=== PATIENT | male | born 1960 | race Caucasian/White ===

== ENCOUNTER 2017-09-06 13:57 | Emergency (ER) | payer BC ==
[2017-09-06 14:21] VITALS: BP 129/85
--- NOTE | 2017-09-06 14:46 | UC ---
Respiratory Complaint HPI - HPI Summary HPI Summary: 57 year old male presents with complains of cough and chest congestion. - History of Current Complaint Chief Complaint: UCRespiratory Stated Complaint: COUGH UPPER RESPIRATORY Time Seen by Provider: 09/06/17 14:46 Hx Obtained From: Patient Timing: Constant Severity Initially: Moderate Severity Currently: Moderate - Allergies/Home Medications Allergies/Adverse Reactions: Allergies Allergy/AdvReac Type Severity Reaction Status Date / Time Nortriptyline Allergy Hives Verified 09/06/17 14:21 Home Medications: Home Medications Albuterol HFA INHALER* [Ventolin HFA Inhaler*] 2 puff INH Q6H PRN 09/06/17 [ History Confirmed 09/06/17] Baclofen TAB* [Lioresal TAB*] 20 mg PO BID 09/06/17 [History Confirmed 09/06/17 ] Budesonide/Formote 160/4.5(NF) [Symbicort 160/4.5 (NF)] 2 puff INH BID 09/06/17 [History Confirmed 09/06/17] Metoprolol Tartrate TAB* [Lopressor TAB*] 25 mg PO DAILY 09/06/17 [History Confirmed 09/06/17] Zolpidem TAB* [Ambien TAB*] 10 mg PO BEDTIME PRN 09/06/17 [History Confirmed ] oxyCODONE TAB* [Roxycodone TAB 5 mg*] 10 mg PO BID 09/06/17 [History Confirmed 09/06/17] PMH/Surg Hx/FS Hx/Imm Hx Previously Healthy: Yes - Surgical History Surgical History: Yes Surgery Procedure, Year, and Place: hemorrhoids, IH repairs x 3, left knee meniscus; cervical with 3 titanium screws, one plate [address] Jensen - Social History Alcohol Use: Occasionally Substance Use Type: None Smoking Status (MU): Never Smoked Tobacco Review of Systems Constitutional: Negative Skin: Negative Eyes: Negative ENT: Sinus Congestion, Sinus Pain/Tenderness Respiratory: Cough Cardiovascular: Negative Gastrointestinal: Negative Genitourinary: Negative Motor: Negative Neurovascular: Negative Musculoskeletal: Negative Neurological: Negative Psychological: Negative All Other Systems Reviewed And Are Negative: Yes Physical Exam Triage Information Reviewed: Yes Vital Signs: Initial Vital Signs Temp 36.9 C 09/06/17 14:16 Pulse 70 09/06/17 14:16 Resp 21 09/06/17 14:16 BP 129/85 09/06/17 14:16 Pulse Ox 98 09/06/17 14:16 Vital Signs Reviewed: Yes Eye Exam: Normal ENT: Positive: Nasal congestion, Nasal drainage, Sinus tenderness Dental Exam: Normal Neck exam: Normal Neck: Positive: 1 Respiratory: Positive: Rhonchi, Wheezing Cardiovascular Exam: Normal Abdominal Exam: Normal Musculoskeletal Exam: Normal Neurological Exam: Normal Psychological Exam: Normal Skin Exam: Normal UC Diagnostic Evaluation - Laboratory O2 Sat by Pulse Oximetry: 98 Respiratory Course/Dx - Differential Dx/Diagnosis Provider Diagnoses: cough. chest congestion Discharge - Discharge Plan Condition: Stable Disposition: HOME Prescriptions: Albuterol HFA INHALER* [Ventolin HFA Inhaler*] 1 puff INH Q6H PRN #1 mdi PRN Reason: Wheezing Amoxicillin/Clavulanate TAB* [Augmentin TAB 875*] 875 mg PO BID #20 tab Guaifenesin-Codeine [Cheratussin AC] 1 teasp PO Q8H PRN #120 ml MDD 15 ml PRN Reason: Cough Methylprednisolone [Medrol Dosepak 4 MG*] 4 mg PO .SEE PAULO INSTRUCTION #21 tab Patient Education Materials: Acute Bronchitis (ED), Acute Cough (ED) Referrals: No Primary Care Phys,NOPCP [Primary Care Provider] -
== END 2017-09-06 15:07 | disposition home or self-care (01) ==
LOC: UCCORT 13:57
DX: R05 Cough (principal); R09.89 Other specified symptoms and signs involving the circulatory and respiratory systems
CPT/HCPCS: 99212; G0463

== ENCOUNTER 2019-07-13 14:22 | Emergency (ER) | payer BC | END 2019-07-13 15:23 | disposition left against medical advice (07) | LOC: UCCORT 14:22 | DX: R05 Cough (principal); J34.89 Other specified disorders of nose and nasal sinuses; Z53.21 Procedure and treatment not carried out due to patient leaving prior to being seen by health care provider ==

== ENCOUNTER 2021-11-01 07:30 | Observation (INO) ==
[~2021-11-01 07:30] MED LIST: Buffered Lidocaine 1% SYRIN 1 ml INTRADERM ONE; Lactated Ringers 1000 ml BAG 1,000 ML IV SCH
[2021-11-01] MEDS ORDERED: Midazolam 2 mg/2 ml VIAL 1 mg/ml 2 ml VIAL (2 mg) ONE (07:44)
[2021-11-01] MEDS ORDERED: fentaNYL 100 mcg/2 ml 50 MCG/ML VIAL ONE (07:44)
[2021-11-01] MEDS ORDERED: Phenylephrine IV 10 MG/ML 1 ml VIAL ONE (07:45)
[2021-11-01] MEDS ORDERED: Lidocaine 2% PF 5 ML VIAL ONE (07:45)
[2021-11-01] MEDS ORDERED: Propofol 10 mg/ml 100 ML BTL 100 ML ONE (07:56)
[2021-11-01] MEDS ORDERED: ceFAZolin 1 GM ADVAN 1 GM ADDV.VIAL IVPB ONE (08:22)
[2021-11-01] MEDS ORDERED: Buffered Lidocaine 1% SYRIN 1 ml INTRADERM ONE (08:23)
[2021-11-01] MEDS ORDERED: ceFAZolin 2 GM PREMIX 2 GM/50 ML BAG ONE (08:23)
[2021-11-01] MEDS ORDERED: Bupivacaine 0.5% W/EPI SDV 10 ML VIAL INJ ONE (08:52)
[2021-11-01] MEDS ORDERED: Vancomycin 1,000 MG VIAL ONE (08:52)
[2021-11-01] MEDS ORDERED: Lidocaine 1% MPF 5 ML VIAL ONE (09:07)
[2021-11-01] MEDS ORDERED: ROPIVACAINE 5 MG/ML 30 ML BTL (0.5%) ONE (09:07)
[2021-11-01] MEDS ORDERED: Propofol 10 MG/ML 20 ML BTL ONE ×2 (09:30→09:48)
[2021-11-01] MEDS ORDERED: fentaNYL 250 mcg/5 ml 50 MCG/ML 5 ml VIAL (250 MCG) ONE (09:33)
[2021-11-01] MEDS ORDERED: Ketamine HCL 50 mg/ml 10 ml VIAL (500 MG) ONE (09:52)
[2021-11-01] MEDS ORDERED: EPHEDrine (Pressors) 50 MG/ML VIAL ONE (10:07)
[2021-11-01] MEDS ORDERED: fentaNYL 100 mcg/2 ml 50 MCG/ML VIAL IV PRN (10:14)
[2021-11-01] MEDS ORDERED: Acetaminophen IV 1 GM/100ML 100 ML IV PRN (10:14)
[2021-11-01] MEDS ORDERED: Naloxone 0.4 mg VIAL 0.4 mg/ml 1 ml VIAL IV PRN (10:14)
[2021-11-01] MEDS ORDERED: DiMENhydriNATE IV 50 mg/ml 1 ml VIAL IV PUSH PRN (10:14)
[2021-11-01] MEDS ORDERED: Ondansetron 4 mg VIAL 2 MG/ML 2 ml VIAL IV PRN ×2 (10:14→12:45)
[2021-11-01] MEDS ORDERED: HYDROmorphone 1 MG/1 ML SYRINGE IV PRN (10:14)
[2021-11-01] MEDS ORDERED: diPHENhydraMINE IV 50 MG/ML 1 ml VIAL (BENADRYL) IV PRN ×2 (10:14→12:45)
[2021-11-01] MEDS ORDERED: Prochlorperazine 5 mg/ml 2 ml VIAL (10 mg) IV PRN (10:14)
[2021-11-01] MEDS ORDERED: HYDROmorphone 0.5 MG/0.5 ML SYRINGE ONE ×2 (10:51)
[2021-11-01 11:22] LABS: Urine Appearance Clear; Urine Bilirubin Negative (Negative); Urine Blood Negative (Negative); Urine Color Yellow; Urine Glucose Negative (Negative); Urine Ketones Negative (Negative); Urine Nitrite Negative (Negative); Urine Protein Negative (Negative); Urine Urobilinogen Negative (Negative)
[2021-11-01 11:29] LABS: Urine Bacteria Absent (Absent); Urine Red Blood Cell Absent (Absent); Urine Squamous Epithelial Cell Present (Absent); Urine White Blood Cell Absent (Absent)
[2021-11-01] MEDS ORDERED: Acetaminophen IV 1 GM/100ML 100 ML IV ONE (11:30)
[2021-11-01] MEDS ORDERED: Dexamethasone IV 4 MG/ML VIAL 1 ml VIAL ONE (12:05)
[2021-11-01] MEDS ORDERED: Ondansetron 4 mg VIAL 2 MG/ML 2 ml VIAL ONE (12:05)
[2021-11-01] MEDS ORDERED: Lactulose 30 ml UDC PO PRN (12:45)
[2021-11-01] MEDS ORDERED: Magnesium Hydroxide LIQ 30 ML UDC PO PRN (12:45)
[2021-11-01] MEDS ORDERED: Ondansetron ODT 4 mg TAB 4 MG TAB PO PRN (12:45)
[2021-11-01] MEDS ORDERED: diPHENhydraMINE 25 mg TAB PO PRN (12:45)
[2021-11-01] MEDS ORDERED: Morphine 2 MG/ML SYRINGE IV PRN (12:45)
[2021-11-01] MEDS ORDERED: Beclomethasone 40 MCG MDI(NF) 40 MCG/PUFF MDI INH PRN (12:51)
[2021-11-01] MEDS ORDERED: Albuterol HFA INHALER 8 gm MDI INH PRN (12:51)
[2021-11-01] MEDS: Lactated Ringers 1000 ml BAG 1,000 ML IV SCH (14:20)
[2021-11-01] MEDS: ceFAZolin 1 GM ADVAN 1 GM in NS 0.9% 50 ML 50 ML IVPB SCH (17:59)
[2021-11-01] MEDS: Magnesium Hydroxide LIQ 30 ML UDC PO SCH (20:18)
[2021-11-02] MEDS: Lactated Ringers 1000 ml BAG 1,000 ML IV SCH (01:34)
[2021-11-02] MEDS: ceFAZolin 1 GM ADVAN 1 GM in NS 0.9% 50 ML 50 ML IVPB SCH ×2 (02:09→09:54)
[2021-11-02 06:04] LABS: Hematocrit 34 % (42-52); Hemoglobin 11.9 g/dL (14.0-18.0); Mean Platelet Volume 9.6 fL (7.4-10.4); Platelet Count 131 10^3/uL (150-450)
[2021-11-02 07:45] LABS: Calcium 8.4 mg/dL (8.6-10.3); Potassium 4.3 mmol/L (3.5-5.0); eGFR CKD-EPI 80.3 (>60)
[2021-11-02] MEDS: Magnesium Hydroxide LIQ 30 ML UDC PO SCH (08:18)
[2021-11-02] MEDS ORDERED: Vitamin THERAPEUTIC TAB PO SCH (09:00)
[2021-11-02] MEDS ORDERED: Acetylcysteine 600mgCAP(RENAL) PO SCH (09:00)
[2021-11-02 11:37] VITALS: BP 125/79
== END 2021-11-02 14:45 | disposition home or self-care (01) ==
LOC: AA 08:05 → INTOOBSV 08:05 → SSU 14:15
PROVIDERS: ADMIT Orthopaedic Surgery; ATTEND Orthopaedic Surgery